=== PATIENT | female | born 2005 | race Caucasian/White ===

== ENCOUNTER 2025-02-26 11:30 | Emergency (ER) | payer SELFPAY ==
--- NOTE | ~2025-02-26 | XR_ITS ---
Examination: XR chest 2V Clinical History: cp, sob X 7 DAYS Comparison: None Technique: PA and Lateral Findings: Cardiomediastinal silhouette normal size and configuration. Streaky airspace disease right lower lobe. No acute bony abnormality. IMPRESSION: 1. Small right lower lobe pneumonia. Reviewed, dictated and finalized at location . D CERTIFIED FAMILY PHYSICIAN
[2025-02-26 12:05] VITALS: BP 142/82; PULSE 103; RESP 17; TEMP 36.6; O2SAT 99
--- NOTE | 2025-02-26 12:09 | ECG_ITS ---
Test Date: 2025-02-26 12:14:34 Measurements Intervals [place] Rate: 112 P: 66 TX: 126 QRS: 59 QRSD: 110 T: -44 QT: 343 QTc: 470 Interpretive Statements SINUS TACHYCARDIA POSSIBLE RIGHT ATRIAL ENLARGEMENT [0.25mV P-WAVE] LEFT ATRIAL ENLARGEMENT [-0.15mV P-WAVE IN V1/V2] INCOMPLETE RIGHT BUNDLE-BRANCH WITH REPOLARIZATION CHANGES No previous ECG available for comparison Electronically Signed On 02-26-2025 12:48:38 INJECTION MOLDING OPERATOR by Samy Roldan M.D.
[2025-02-26 12:28] LABS: Hematocrit 37.4 % (37.0-47.0); Hemoglobin 12.5 g/dL (12.0-15.0); Immature Granulocyte Percent A 0.3 % (0-0.5); Lymphocytes Absolute Auto 1.52 K/mm3 (0.9-3.2); Mean Corpuscular HGB Conc 33.4 g/dl (32-36); Mean Corpuscular Hemoglobin 30.9 pg (26-34); Mean Corpuscular Volume 92.3 fl (80-100); Nucleated Red Blood Cells Absolute Auto 0.000 K/mm3 (0.0-0.012); Nucleated Red Blood Cells Perc 0.0 % (0.0-0.2); Platelet Count Result 213 k/mm3 (150-375); Red Blood Count 4.05 M/mm3 (4.2-5.4); White Blood Count 7.7 K/mm3 (4.5-10.0)
[2025-02-26 12:42] LABS: Alanine Aminotransferase 11 U/L (6-35); Albumin Level 4.5 g/dL (3.5-5.1); Alkaline Phosphatase 67 U/L (38-126); Anion Gap 11 mmol/L (4-12); Aspartate Amino Transferase 24 U/L (14-36); Bilirubin,Total 1.4 mg/dL (0.2-1.3); Blood Urea Nitrogen 4 mg/dL (7-17); Calcium 9.3 mg/dL (8.4-10.2); Carbon Dioxide 21 mmol/L (22-30); Chloride 106 mmol/L (98-107); Estimated CRCL calculation 80 ml/min; Estimated Glomerular Filt Rate > 60; Glucose 95 mg/dL (65-110); Lipase 19 U/L (23-300); Potassium 3.3 mmol/L (3.4-5.0); Sodium 138 mmol/L (137-145); Total Protein 8.0 g/dL (6.3-8.2)
[2025-02-26 12:44] LABS: INR 1.0; Prothrombin Time 13.7 Seconds (11.1-14.7)
[2025-02-26 12:45] LABS: Partial Thromboplastin Time 29.5 Seconds (22.3-36.8)
[2025-02-26 12:53] LABS: Troponin I < 0.012 ng/mL (0.000-0.034)
== END 2025-02-26 14:50 | disposition left against medical advice (07) ==
PROVIDERS: Emergency Provider Emergency Medicine; PCP Pediatrics
DX: R07.89 Other chest pain (principal)
CPT/HCPCS: 36415; 71046; 80053; 83690; 84484; 85025; 85610; 85730; 93005; 99199